=== PATIENT | male | born 1990 | race Caucasian/White ===

== ENCOUNTER 2018-04-26 23:40 | Emergency (ER) | payer OTHER ==
[~2018-04-26] VITALS: Ht 177.8 cm; Wt 96.4 kg
[2018-04-26 23:45] VITALS: BP 156/81; TEMP 98.4
[2018-04-27 00:31] LABS: BASO % 0.2 % (0.0-2.0); EOS # 0.1 (0.0-0.7); EOS % 1.6 % (0-4.0); GRAN # 6.2 (1.4-6.5); GRAN % 72.3 % (42.2-75.2); HEMOGLOBIN 16.5 g/dl (13.5-18.0); LYMPH # 1.7 (1.2-3.4); LYMPH % 20.3 % (20.0-51.0); MEAN CELL VOLUME 81 fl (80.0-100.0); MEAN CORPUSCULAR HEMOGLOBIN 28 pg (27.0-31.0); MEAN CORPUSCULAR HGB CONC 34 g/dl (33.0-37.0); MEAN PLATELET VOLUME 9.2 fl (7.4-10.4); MONO # 0.5 (0.1-0.6); MONO % 5.4 % (1.7-9.3); PLATELET COUNT 277 K/mm3 (130-400); RED BLOOD COUNT 5.91 M/mm3 (4.20-5.60)
[2018-04-27 00:43] LABS: ALBUMIN 4.4 gm/dL (3.5-5.0); BILIRUBIN,TOTAL 0.6 mg/dL (0.0-1.0); CALCIUM 8.7 mg/dL (8.4-10.2); CREATININE, serum 1.21 mg/dL (0.66-1.25); TOTAL PROTEIN 7.6 gm/dL (6.4-8.2)
[2018-04-27] MEDS ORDERED: EPIPEN 2-PAK1 MG/ML IM (00:56)
[2018-04-27] MEDS ORDERED: PREDNISONE10 MG PO (00:56)
[2018-04-27 00:58] LABS: ERYTHROCYTE SEDIMENTATION RATE 1 mm/hr (0-15)
[2018-04-27 01:09] VITALS: PULSE 77
== END 2018-04-27 01:11 | disposition home or self-care (01) ==
LOC: COL.ER 23:40
PROVIDERS: Physician Assistant
DX: L50.9 Urticaria, unspecified (principal)
CPT/HCPCS: J1200; J2930